=== PATIENT | male | born 1990 | race Caucasian/White ===

== ENCOUNTER 2019-09-20 05:57 | Inpatient (IN) | payer OTHER ==
[2019-09-20 07:00] VITALS: BMI 40.6
[2019-09-20] MEDS ORDERED: DEXAMETHASONE SOD PHOSPHATE/PF 10 MG/ML SDV ONE (07:14)
[2019-09-20] MEDS ORDERED: MIDAZOLAM HCL 2 MG/2 ML SINGLE DOSE VIAL ONE ×2 (07:14→07:51)
[2019-09-20] MEDS ORDERED: BUPIVACAINE HCL/PF 0.5% (5 MG/ML) 30 ML VIAL IJ ONE (07:15)
[2019-09-20] MEDS ORDERED: BUPIVACAINE HCL/PF 0.25% (2.5MG/ML) 10 ML VIAL ONE (07:24)
[2019-09-20] MEDS ORDERED: ROPIVACAINE HCL 0.5% 30ML VIAL ONE ×2 (07:30→07:31)
--- NOTE | 2019-09-20 07:39 | HP ---
Admitting History and Physical - Admission Chief Complaint: Morbid obesity History Source: Patient Limitations to Obtaining History: No Limitations - Past Surgical History Past Surgical History: Yes: None - Smoking History Smoking history: Never smoked Have you smoked in the past 12 months: No - Social History ADL: Independent Home Medications - Allergies Allergies/Adverse Reactions: Allergies Allergy/AdvReac Type Severity Reaction Status Date / Time No Known Drug Allergies Allergy Verified 09/14/19 12:16 - Home Medications Home Medications: Ambulatory Orders Docusate Sodium [Colace -] 100 mg PO TID #90 capsule 09/20/19 Famotidine [Pepcid] 20 mg PO BID #60 tablet 09/20/19 Ondansetron [Zofran -] 8 mg PO TID #30 tablet 09/20/19 Oxycodone HCl/Acetaminophen [Percocet 5-325 mg Tablet] 1 - 2 tab PO Q6H #28 tab MDD 4 09/20/19 Family Medical History Family History: Unremarkable Review of Systems - Review of Systems Constitutional: denies: Chills, Fever HENT: reports: No Symptoms Neck: reports: No Symptoms Cardiovascular: reports: No Symptoms Respiratory: reports: No Symptoms Gastrointestinal: reports: No Symptoms Neurological: reports: No Symptoms Pain Intensity: 0 Physical Examination Vital Signs: Vital Signs Temperature 98.1 F 09/20/19 06:54 Pulse Rate 83 09/20/19 06:54 Respiratory Rate 20 09/20/19 06:54 Blood Pressure 144/90 09/20/19 06:54 O2 Sat by Pulse Oximetry (%) 95 09/20/19 06:54 Constitutional: Yes: Calm Neck: Yes: WNL Cardiovascular: Yes: Regular Rate and Rhythm Respiratory: Yes: WNL Gastrointestinal: Yes: Soft, Abdomen, Obese Neurological: Yes: Alert, Oriented Problem List - Problems (1) Morbid obesity due to excess calories Code(s): E66.01 - MORBID (SEVERE) OBESITY DUE TO EXCESS CALORIES (2) BMI 40.0-44.9, adult Code(s): Z68.41 - BODY MASS INDEX (BMI) 40.0-44.9, ADULT Assessment/Plan Laparoscopic possible open vertical sleeve gastrectomy possible liver biopsy, upper endoscopy
[2019-09-20] MEDS ORDERED: ROCURONIUM BROMIDE 50 MG/5 ML VIAL ONE (07:51)
[2019-09-20] MEDS ORDERED: fentaNYL CITRATE 250 MCG/5 ML VIAL ONE (07:51)
[2019-09-20] MEDS ORDERED: PROPOFOL 20 ML ONE ×2 (07:52)
[2019-09-20] MEDS ORDERED: SUCCINYLCHOLINE CHLORIDE 200 MG/10 ML SYRINGE ONE (07:52)
[2019-09-20] MEDS ORDERED: BUPIVACAINE HCL/PF 0.25% (2.5MG/ML) 10 ML VIAL IJ ONE (09:08)
[2019-09-20] MEDS ORDERED: ONDANSETRON 4 MG/2 ML VIAL IVPUSH PRN (09:09)
[2019-09-20] MEDS ORDERED: LACTATED RINGERS SOLUTION 1,000 ML IV SCH (09:15)
[2019-09-20] MEDS ORDERED: NEOSTIGMINE METHYLSULFATE 0.5 MG/ML - 10 ML MDV ONE (09:17)
--- NOTE | 2019-09-20 09:25 | OPR ---
Operative Note Operative Date: 09/20/19 Pre-Operative Diagnosis: Morbid obesity Operation: 1. Diagnostic laparoscopy. 2. Laparoscopic vertical sleeve gastrectomy. 3. Laparoscopic wedge liver biopsy. 4. Laparoscopic oversewing of gastric staple line Post-Operative Diagnosis: Same as Pre-op (as well as hepatomegaly and oozing from gastric staple line) Surgeon: Tomas Corona Digital Coordinator: Wenceslao Horn Anesthesia: General Specimens Removed: Greater curvature of stomach. Liver biopsy. Estimated Blood Loss (mls): 30 Drains & Tubes with Location: 36 Fr Bougie Operative Report Dictated: Yes
[2019-09-20] MEDS ORDERED: ACETAMINOPHEN INJECTION 100 ML IVPB ONE (09:29)
[2019-09-20] MEDS ORDERED: METOCLOPRAMIDE HCL INJECTION 10 MG/2 ML VIAL ONE (09:29)
[2019-09-20] MEDS ORDERED: FAMOTIDINE 20 MG/50 ML IVPB 20 MG/50 ML MG IVPB ONE (09:29)
[2019-09-20] MEDS: METOCLOPRAMIDE HCL INJECTION 10 MG/2 ML VIAL IVPUSH SCH ×3 (09:40→21:39)
[2019-09-20] MEDS ORDERED: ONDANSETRON 4 MG/2 ML VIAL ONE (09:42)
[2019-09-20] MEDS: ONDANSETRON 4 MG/2 ML VIAL IVPUSH SCH ×4 (09:45→21:39)
[2019-09-20] MEDS ORDERED: FAMOTIDINE 20 MG PREMIXED IVPB IVPB ONE (09:50)
[2019-09-20 09:53] LABS: HEMATOCRIT 45.7 % (35.4-49); MCHC 32.8 g/dl (32.0-35.9); MEAN CELL VOLUME 91.3 fl (80-96); MEAN PLT VOLUME 7.7 fl (7.5-11.1); PLATELET COUNT 318 K/MM3 (134-434); RBC 5.01 M/mm3 (4.00-5.60); RDW 14.2 % (11.9-15.9); WHITE BLOOD COUNT 11.8 K/mm3 (4.0-10.8)
[2019-09-20] MEDS: ACETAMINOPHEN 1000 MG/100 ML VIAL (NON FORMULARY) IVPB SCH ×3 (10:00→21:40)
[2019-09-20] MEDS ORDERED: PROMETHAZINE HCL 25 MG/1 ML VIAL ONE (10:03)
[2019-09-20] MEDS ORDERED: PROMETHAZINE HCL 25 MG/1 ML VIAL IVPUSH ONE ×2 (10:05→11:44)
[2019-09-20 10:14] LABS: BILIRUBIN,TOTAL 0.6 mg/dl (0.2-1); CALCIUM 8.9 mg/dl (8.5-10); CREATININE 1.2 mg/dl (0.55-1.3); POTASSIUM 4.4 mmol/L (3.5-5.1)
[2019-09-20] MEDS: SODIUM CHLORIDE 1,000 ML IV SCH (11:15)
[2019-09-20] MEDS: HYDROmorphone HCL/PF 1 MG/ML VIAL IVPB PRN ×3 (12:22→19:59)
[2019-09-20] MEDS: FAMOTIDINE 20 MG/50 ML IVPB 20 MG/50 ML MG IVPB SCH ×2 (12:26→21:39)
--- NOTE | 2019-09-20 16:10 | SPEC ---
DATE OF OPERATION: 09/20/2019 SURGEON: Tomas Corona MD. NEEDLE LOOM TENDER: Wenceslao Horn MD. PLACE OF SURGERY: [facility], [address] [place] [address]. PREOPERATIVE DIAGNOSIS: Morbid obesity. POSTOPERATIVE DIAGNOSIS: 1. Morbid obesity. 2.. Hepatomegaly. PROCEDURES: 1. Diagnostic laparoscopy. 2. Laparoscopic vertical sleeve gastrectomy. 3. Laparoscopic wedge liver biopsy. 4. Laparoscopic oversewing of gastric staple line. SPECIMENS: 1. Greater curvature of the stomach. 2. Liver biopsy. BLOOD LOSS: 30 mL. DRAINS: None. ANESTHESIA: GET. BOUGIE SIZE: 36 Swedish . REASON FOR PROCEDURE: This is a 29-year-old male who presents to the office for weight loss options. I described different options. He decided to proceed with laparoscopic, possible open vertical sleeve gastrectomy, possible liver biopsy, upper endoscopy. RISKS AND BENEFITS: After describing the different options for weight loss management, the patient decided to proceed with a laparoscopic, possible open vertical sleeve gastrectomy. The patient was seen by the respective subspecialties and cleared for surgery. The risks and benefits of the procedure were explained. These included bleeding, infection, hernia, MN, DVT, PE, injury to surrounding structures including the liver, colon, bowel, spleen, esophagus, vessel injury, nerve injury, weight regain, gastric leak, staple line leak, sleeve leak, obstruction, vitamin deficiency, hair loss and as some of the possible complications. The patient understood and signed informed consent. DESCRIPTION OF PROCEDURE: The patient was placed supine on the operating room table. The patient underwent general endotracheal intubation. The arms were brought out at 90 degrees and secured. A footboard was placed and the legs were secured laterally with padding. The abdomen was prepped and draped in the usual sterile fashion. A timeout was performed. An incision was made in the left upper quadrant and a Veress needle inserted. Pneumoperitoneum was established. Subsequently, the Veress needle was removed and a 5-mm trocar was placed under direct visualization with the laparoscope. The laparoscopic camera was then inserted and inspection of the abdominal cavity was performed. An incision was then made in the supraumbilical area and a 15-mm trocar was placed under direct visualization. A 5-mm trocar was then placed in the right upper quadrant and a 5-mm trocar was placed below the left subcostal margin. A stab wound was made in the subxiphoid area and a Roxanna clamp inserted and removed to dilate the tract. A Fabián liver retractor was inserted. The post was secured at the bedside by the nursing staff. The patient was placed in steep reverse Trendelenburg position and the Fabián liver retractor was used to secure the liver towards the anterior abdominal wall. The pylorus was identified and 6 cm proximal to it, the lesser sac was entered using the LigaSure device. All lateral attachments to the greater curvature of the stomach, including the short gastric vessels, were ligated using the LigaSure device toward the gastrosplenic and gastrophrenic ligaments. Once this was done in its entirety, it was confirmed that all tubes within the nasal or oropharyngeal cavity, including a temperature probe were removed by Anesthesia. The bougie was then inserted by Anesthesia. Transection of the stomach was then begun staying adjacent to the bougie but away from the angularis. Transection of the stomach was performed near the portion of the stomach where the lesser sac was entered. Two laparoscopic Endo-JANET black beth were used at this location. Laparoscopic Endo JANET purple staple loads were then used for the remainder of the transection until the greater curvature of the stomach was fully transected. This was done staying close to the bougie. Care was taken to stay away from the angle of His cephalad. The staple line was then inspected. Hemostasis was identified. A leak test was then performed. It was clamped distally to the staple line. Irrigation solution was placed in the left upper quadrant and air was insufflated by Anesthesia into the sleeve. No leaks were identified. No obstruction was identified. This was done through the entirety of the staple line. The stomach was suctioned and the bougie removed fully intact under direct visualization. At this point, the irrigation solution was suctioned and again, hemostasis was noted. A wedge liver biopsy was then performed. The left lobe of the liver was identified. A portion of the edge of the left lobe of the liver was grasped. Using electrocautery, a wedge of the left liver was excised. The specimen was removed and sent off the field. Hemostasis of the wedge liver biopsy site was attained and noted using electrocautery. The 15-mm supraumbilical trocar was then removed and the greater curvature specimen removed from the site using a sponge stick lambert. A Yang-Ronnie device was then used to close the fascia with a 0 Vicryl suture at the site. Again, hemostasis was noted. The Fabián liver retractor was then removed under direct visualization. Pneumoperitoneum was desufflated. Hemostasis was noted at all incision sites and Marcaine was injected at all incision sites. A 3-0 Vicryl suture was used to close the deep subcutaneous tissue at the 15-mm incision site. All incision sites were closed using 4-0 Biosyn. Sterile dressings were applied. The patient tolerated the procedure well and was transferred to the recovery room in stable condition. Flash [id number]
[2019-09-20] MEDS: ENOXAPARIN NA (PORCINE) 40 MG/0.4 ML DISP.SYRIN SQ SCH (21:39)
[2019-09-21] MEDS: HYDROmorphone HCL/PF 1 MG/ML VIAL IVPB PRN ×3 (01:43→13:30)
[2019-09-21] MEDS: ONDANSETRON 4 MG/2 ML VIAL IVPUSH SCH ×4 (01:44→13:30)
[2019-09-21] MEDS: METOCLOPRAMIDE HCL INJECTION 10 MG/2 ML VIAL IVPUSH SCH ×2 (03:15→09:46)
[2019-09-21] MEDS: ACETAMINOPHEN 1000 MG/100 ML VIAL (NON FORMULARY) IVPB SCH (03:16)
[2019-09-21 08:18] LABS: HEMATOCRIT 39.8 % (35.4-49); HEMOGLOBIN 13.2 GM/dl (11.7-16.9); MCH 29.6 pg (25.7-33.7); MCHC 33.1 g/dl (32.0-35.9); MEAN CELL VOLUME 89.3 fl (80-96); MEAN PLT VOLUME 8.2 fl (7.5-11.1); PLATELET COUNT 267 K/MM3 (134-434); RBC 4.46 M/mm3 (4.00-5.60); RDW 13.6 % (11.9-15.9); WHITE BLOOD COUNT 10.6 K/mm3 (4.0-10.8)
[2019-09-21 08:20] LABS: ALBUMIN 3.5 g/dl (3.4-5.0); BILIRUBIN,TOTAL 0.8 mg/dl (0.2-1); CALCIUM 8.3 mg/dl (8.5-10); POTASSIUM 3.9 mmol/L (3.5-5.1); TOT PROT 6.1 g/dl (6.4-8.2)
--- NOTE | 2019-09-21 08:57 | PN ---
Progress Note (short form) - Note Progress Note: POD #1 s/p laparoscopic gastric sleeve under GETA. Doing well, no ana sea/vomiting, pain controlled. Ambulating. All questions answered.
[2019-09-21] MEDS: SODIUM CHLORIDE 1,000 ML IV SCH (09:45)
[2019-09-21] MEDS: FAMOTIDINE 20 MG/50 ML IVPB 20 MG/50 ML MG IVPB SCH (09:46)
[2019-09-21] MEDS: ENOXAPARIN NA (PORCINE) 40 MG/0.4 ML DISP.SYRIN SQ SCH (09:46)
[2019-09-21] MEDS ORDERED: oxyCODONE HCL 5 MG TABLET PO PRN (10:47)
--- NOTE | 2019-09-21 10:47 | PN ---
Progress Note (short form) - Note Progress Note: POD 1 No events reported Vital Signs Period Temp Pulse Resp BP Sys/Granado Pulse Ox Last 24 Hr 98.4 F-99.3 F 65-91 18-20 125-160/56-95 94-100 CBC,CMP WBC 10.6 K/mm3 (4.0-10.8) 09/21/19 07:16 RBC 4.46 M/mm3 (4.00-5.60) 09/21/19 07:16 Hgb 13.2 GM/dl (11.7-16.9) 09/21/19 07:16 Hct 39.8 % (35.4-49) 09/21/19 07:16 MCV 89.3 fl (80-96) 09/21/19 07:16 MCH 29.6 pg (25.7-33.7) 09/21/19 07:16 MCHC 33.1 g/dl (32.0-35.9) 09/21/19 07:16 RDW 13.6 % (11.9-15.9) 09/21/19 07:16 Plt Count 267 K/MM3 (134-434) 09/21/19 07:16 MPV 8.2 fl (7.5-11.1) 09/21/19 07:16 Sodium 135 mmol/L (136-145) L 09/21/19 07:16 Potassium 3.9 mmol/L (3.5-5.1) 09/21/19 07:16 Chloride 103 mmol/L (98-107) 09/21/19 07:16 Carbon Dioxide 24 mmol/L (21-32) 09/21/19 07:16 Anion Gap 8 MMOL/L (8-16) 09/21/19 07:16 BUN 10.0 mg/dl (7-18) 09/21/19 07:16 Creatinine 1.0 mg/dl (0.55-1.3) 09/21/19 07:16 Est GFR (CKD-EPI)AfAm 118.19 09/21/19 07:16 Est GFR (CKD-EPI)NonAf 101.97 09/21/19 07:16 Random Glucose 116 mg/dl (74-106) H 09/21/19 07:16 Calcium 8.3 mg/dl (8.5-10) L 09/21/19 07:16 Total Bilirubin 0.8 mg/dl (0.2-1) 09/21/19 07:16 AST 32 U/L (15-37) 09/21/19 07:16 ALT 50 U/L (13-61) 09/21/19 07:16 Alkaline Phosphatase 94 U/L (45-117) D 09/21/19 07:16 Total Protein 6.1 g/dl (6.4-8.2) L 09/21/19 07:16 Albumin 3.5 g/dl (3.4-5.0) 09/21/19 07:16 UGI: no leak/obstruction Clears Discharge home Problem List - Problems (1) Morbid obesity due to excess calories Code(s): E66.01 - MORBID (SEVERE) OBESITY DUE TO EXCESS CALORIES (2) BMI 40.0-44.9, adult Code(s): Z68.41 - BODY MASS INDEX (BMI) 40.0-44.9, ADULT
[2019-09-21] MEDS ORDERED: SODIUM CHLORIDE 1,000 ML IV SCH (11:00)
[2019-09-21 15:37] VITALS: PULSE 70
[2019-09-21 15:44] VITALS: BP 126/60; TEMP 98.5
--- NOTE | 2019-09-22 15:59 | PATH ---
Surgical Pathology Report Patient Name: COLTEN CRAMER Med. Rec. #: [id number] /Age/Gender: 1990 (Age: 29) / M Account: [id number] Location: [facility] MED-SURG Taken: 09/20/2019 Received: 09/20/2019 Reported: 09/22/2019 Physicians: Tomas Corona M.D. Specimen(s) Received A: GREATER CURVATURE OF STOMACH B: LIVER BIOPSY Clinical History Morbid obesity Final Diagnosis A. GREATER CURVATURE, STOMACH, LAPAROSCOPIC SLEEVE GASTRECTOMY: STOMACH SHOWING MILD CHRONIC GASTRITIS. IMMUNOSTAIN IS NEGATIVE FOR H. PYLORI ORGANISMS. B. LIVER, BIOPSY: LIVER SHOWING MILD STEATOSIS (7-8%). TRICHROME STAIN SHOWS NO APPRECIABLE INCREASE IN FIBROSIS. IRON STAIN SHOWS NO STAINABLE IRON DEPOSITS. Comment: The Non-Alcoholic Steatosis (CAM) score is 1/8 (steatosis: 1/3; lobular inflammation: 0/3; hepatocyte balloonin/2). The fibrosis stage is 0/4. Scoring interpretation: Total CAM score represents the sum of scores for steatosis, lobular inflammation and ballooning, and ranges from 0-8. In the reference study,CAM scores of 0-2 occurred in cases largely considered not diagnostic of Non-Alcoholic Steatohepatitis (TIJERINA), scores of 3-4 were evenly divided among those considered not diagnostic, borderline or positive for TIJERINA. Scores of 5-8 occurred in cases that were largely considered diagnostic of TIJERINA. Reference: Yonatan Breaux. & Dereck Quiñonse, et al; Design and validation of a histological scoring system for non-alcoholic fatty liver disease: Hepatology 41:[id number],2005. Electronically Signed Caity Loera M.D. Gross Description A. Received in formalin, labeled "greater curvature of stomach," is a 103 gram, 16.5 x 3.5 x 3.0 cm. portion of stomach with a stapled margin of resection. The serosa is agustin-redmond with minimal attached fat. The mucosa is agustin-pink with normal folds. No mucosal masses are identified. Alteration Specialist sections are submitted in one cassette. B. Received in formalin labeled "liver biopsy," is a 2.9 x 1.5 x 0.6 cm agustin portion of soft tissue, consistent with a liver biopsy. Alteration Specialist sections are submitted in one cassette. 09/21/2019 [facility]09/21/2019
== END 2019-09-21 14:35 | disposition home or self-care (01) | DRG 403 ==
LOC: FM/S 05:57
PROVIDERS: ADMIT Surgery; ATTEND Surgery
PROC: 0DB64Z3 Excision of Stomach, Percutaneous Endoscopic Approach, Vertical (ICD-10-PCS; principal; 2019-09-20 08:16)
PROC: 0FB24ZX Excision of Left Lobe Liver, Percutaneous Endoscopic Approach, Diagnostic (ICD-10-PCS; 2019-09-20 08:16)
DX: E66.01 Morbid (severe) obesity due to excess calories (principal); Z68.41 Body mass index [BMI] 40.0-44.9, adult; R16.0 Hepatomegaly, not elsewhere classified; K29.50 Unspecified chronic gastritis without bleeding
CPT/HCPCS: 36415; 74240-TC-FY; 80053; 85027; 88305-TC; 94760; J0131